=== PATIENT | male | born 1955 | race Caucasian/White ===

== ENCOUNTER 2019-09-12 09:15 | Inpatient (IN) | payer BC, OTHER ==
[~2019-09-12] VITALS: Ht 177.8 cm; Wt 83.9 kg
[~2019-09-12 09:15] MED LIST: ATOR10TA PO
[2019-09-12] MEDS ORDERED: METF-440 PO (09:31)
[2019-09-12] MEDS ORDERED: ASPI81TA31 PO (09:31)
[2019-09-12] MEDS ORDERED: PIOG15TA8 PO (09:31)
--- NOTE | 2019-09-12 09:36 | NUR ---
PT IS IN ROOM #2A. DR HERNANDEZ EVALUATED THE PT.
[2019-09-12] MEDS ORDERED: IV NORMAL SALINE 1000 ML BAG IV ONE ×2 (09:45→11:45)
[2019-09-12 10:02] LABS: *BILIRUBIN,URIN NEGATIVE (NEGATIVE); *BLOOD, URINE 2+ (NEGATIVE); *CLARITY,URINE CLEAR (CLEAR); *COLOR,URINE YELLOW (YELLOW); *KETONES,URINE 3+ (NEGATIVE); *UROBILINOGEN,URINE 0.2 E.U./dl (NORMAL); LEUKOCYTE ESTERASE ,URINE NEGATIVE (NEGATIVE); NITRITE, URINE NEGATIVE (NEGATIVE); PH,URINE 5.5 (5.0-8.0); UGLUCOSE TRACE (NEGATIVE)
[2019-09-12 10:06] LABS: BACTERIA,URINE FEW /HPF (NONE SEEN); RBC,URINE 0-3 /HPF (0-3); SQUAMOUS EPITHELIAL CELL,UR FEW /HPF (NONE SEEN); WBC,URINE 0-3 /HPF (0-3)
[2019-09-12 10:11] LABS: BASOPHILS % (AUTO) 0.2 % (0.0-2.0); EOSINOPHILS % (AUTO) 0.2 % (0.0-7.0); HEMATOCRIT 42.1 % (36.7-47.1); HEMOGLOBIN 13.9 g/dL (12.5-16.3); LYMPHOCYTES # (AUTO) 0.7 K/uL (20.0-40.0); LYMPHOCYTES % (AUTO) 4.9 % (20.5-51.5); MEAN CORPUSCULAR HEMOGLOBIN 28.6 uug (23.8-33.4); MEAN CORPUSCULAR HGB CONC 33 g/dL (32.5-36.3); MEAN CORPUSCULAR VOLUME 86.4 fL (73.0-96.2); MONOCYTES # (AUTO) 0.6 K/uL (2.0-10.0); MONOCYTES % (AUTO) 4.2 % (0.0-11.0); NEUTROPHILS # (AUTO) 12.6 K/uL (1.8-8.9); NEUTROPHILS % (AUTO) 90.5 % (38.5-71.5); PLATELET COUNT (AUTO) 278 K/uL (152-348); RED BLOOD CELL COUNT(AUTO) 4.87 MIL/uL (4.06-5.63)
[2019-09-12 10:17] LABS: CREATININE 1.2 mg/dL (0.6-1.3); POTASSIUM 4.8 mmol/L (3.5-5.1)
[2019-09-12 10:22] LABS: BILIRUBIN,DIRECT 0.2 mg/dL (0.0-0.2); TOTAL PROTEIN, SERUM 7.6 g/dL (6.4-8.2)
[2019-09-12] MEDS ORDERED: TAMSULOSIN HCL 0.4 MG CAP.SR.24H PO ONE (10:45)
[2019-09-12] MEDS ORDERED: TAMSULOSIN HCL 0.4 MG CAP.SR.24H ONE (10:49)
[2019-09-12] MEDS ORDERED: MORPHINE SULFATE 4 MG/1 ML DISP.SYRIN ONE (11:09)
[2019-09-12] MEDS ORDERED: ONDANSETRON 4 MG/2 ML VIAL ONE (11:09)
[2019-09-12] MEDS ORDERED: MORPHINE SULFATE 4 MG/1 ML DISP.SYRIN IV ONE (11:15)
[2019-09-12] MEDS ORDERED: ONDANSETRON 4 MG/2 ML VIAL IV ONE (11:15)
--- NOTE | 2019-09-12 13:53 | NUR ---
REPORT WAS GIVEN TO COOLING TOWER OPERATOR. PT WAS TRANSFERED TO ROOM #315.
--- NOTE | 2019-09-12 14:00 | NUR ---
Received patient via [facility] from ER in stable condition. Patient is alert, awake and verbally responsive. No signs of distress noted. No SOB. No complain of Pain or discomfort at this time. Patient with admitting Diagnosis of Bradycardia and Kidney Stones under Dr. Lei. Head to toe assessment was done. Skin is Intact, LAC Gauge 18 in intact and patent. All needs attended and met. kept clean and comfortable. Will continue to monitor.
[2019-09-12] MEDS ORDERED: ONDANSETRON 4 MG/2 ML VIAL IV PRN (14:30)
[2019-09-12] MEDS ORDERED: ZOLPIDEM 5 MG TABLET PO PRN (14:30)
[2019-09-12] MEDS ORDERED: MAGNESIUM HYDROXIDE 30 ML LIQUID UDC PO PRN (14:30)
[2019-09-12] MEDS ORDERED: Z GUARD REMEDY PASTE 57 GM TUBE TOP PRN (14:30)
[2019-09-12] MEDS ORDERED: MORPHINE SULFATE 2 MG/1 ML DISP.SYRIN IV PRN (14:30)
[2019-09-12] MEDS ORDERED: HYDROCODONE/APAP 5-325MG TABLET PO PRN (14:30)
[2019-09-12] MEDS ORDERED: ACETAMINOPHEN 325 MG TABLET PO PRN (14:30)
[2019-09-12 14:37] VITALS: BP 123/50
[2019-09-12] MEDS: IV 1/2NS 1000 ML 1,000 ML IV PRN (14:45)
--- NOTE | 2019-09-12 16:00 | NUR ---
Patient having a Asymptomatic Bradycardia, ranging 40-50 bpm, Dr. Avendano made aware. Will continue to monitor.
[2019-09-12 16:10] VITALS: BP 119/48
--- NOTE | 2019-09-12 18:23 | NUR ---
Patient in bed, awake and verbally responsive. No signs of distress noted. No SOB. No complain of Pain or discomfort noted. Patient is asymptomatic sinus Bradycardia ranging 40-50 Bpm. Echo was done EF 65%. IVF infusing well on Left AC, No signs of infiltration noted. All needs attended and met. Will continue to Strain Urine as ordered. Kept clean and comfortable. Will endorse to Oncoming Nurse.
--- NOTE | 2019-09-12 19:50 | NUR ---
PATIENT ALERT ORIENTED, NO SOB NO CHEST PAIN, TELE MONITOR SINUS BRADYCARDIA. PATIENT ASYMPTOMATIC, CONTINENT OF BOWEL AND BLADDER, PATIENT WAS INSTRUCTED TO URINATE ON MEASURING CUP WITH STRAINER, SO THAT URINE CAN BE STRAINED. PATIENT URINE WHILE STAFF IN THE ROOM AND ABLE TO PASS SMALL REDDISH COLOR STONE, STONE WAS SAVED, PLACE IT AT SPECIMEN CUT. WILL CONT TO MONITOR.
[2019-09-12 20:00] VITALS: BP 118/47
--- NOTE | 2019-09-12 20:00 | NUR ---
PATIENT VOIDING FREELY, URINE COLOR TEA COLOR BUT NO ODOR NOTED, CONT TO MONITOR.
[2019-09-13] VITALS: BP 96/36
[2019-09-13] MEDS: IV 1/2NS 1000 ML 1,000 ML IV PRN ×2 (00:29→07:57)
[2019-09-13 04:00] VITALS: BP 94/40
--- NOTE | 2019-09-13 05:15 | NUR ---
PATIENT ALERT ORIENTED, NO SOB NO CHEST, PATIENT TELE MONITOR SINUS RHYTHM SINUS JELLY LOW 36 BUT NOT SUSTAIN, PATIENT HAS NO COMPLAIN OF DISCOMFORT OR FLANK PAIN, PATIENT VOIDING WELL AND STATE THAT HE FEEL LOT BETTER, URINE COLOR TEA COLOR URINE, CONT TO MONITOR.
--- NOTE | 2019-09-13 07:10 | NUR ---
Received patient in Bed, awake, alert and verbally responsive. No signs of distress noted. No complain of pain or discomfort. Patient passed 1 stone from his urine last night, will continue to strain urine. Will continue to monitor.
[2019-09-13 07:14] LABS: BASOPHILS # (AUTO) 0.1 K/uL (0.0-8.0); BASOPHILS % (AUTO) 0.7 % (0.0-2.0); EOSINOPHILS # (AUTO) 0.2 K/uL (0.0-0.7); EOSINOPHILS % (AUTO) 2.2 % (0.0-7.0); LYMPHOCYTES # (AUTO) 2.2 K/uL (20.0-40.0); LYMPHOCYTES % (AUTO) 24.3 % (20.5-51.5); MEAN CORPUSCULAR HEMOGLOBIN 28.8 uug (23.8-33.4); MEAN CORPUSCULAR HGB CONC 33 g/dL (32.5-36.3); MEAN CORPUSCULAR VOLUME 86.7 fL (73.0-96.2); MONOCYTES % (AUTO) 11.2 % (0.0-11.0); NEUTROPHILS # (AUTO) 5.6 K/uL (1.8-8.9); NEUTROPHILS % (AUTO) 61.6 % (38.5-71.5); PLATELET COUNT (AUTO) 247 K/uL (152-348); RED BLOOD CELL COUNT(AUTO) 4.22 MIL/uL (4.06-5.63)
[2019-09-13 07:17] LABS: MAGNESIUM 1.8 mg/dL (1.8-2.4); PHOSPHOROUS 3.5 mg/dL (2.5-4.9); POTASSIUM 4.1 mmol/L (3.5-5.1)
[2019-09-13 07:24] LABS: HEMATOCRIT 36.6 % (36.7-47.1); HEMOGLOBIN 12.1 g/dL (12.5-16.3)
--- NOTE | 2019-09-13 10:50 | NUR ---
Patient is awake and verbally responsive. No signs of distress noted. No SOB. No complain of Pain or discomfort. Patient with discharge order to Go Home today. Patient with HR of 65-67 bpm while walking and 45-50 bpm while laying down, evaluated by Dr. Avendano with No New Order. Discharge Instruction given to patient and verbalized Understanding. All belongings was signed and sent with patient. Removed clinical documentation consultant, wrist band and IV site. Patient was Picked up by in stable condition.
[2019-09-13] MEDS ORDERED: TAMSULOSIN HCL 0.4 MG CAP.SR.24H PO SCH (21:00)
== END 2019-09-13 10:50 | disposition home or self-care (01) | DRG 694 ==
LOC: ER 09:15 → TELE3 13:14
PROVIDERS: ADMIT Student in an Organized Health Care Education/Training Program; ATTEND Student in an Organized Health Care Education/Training Program
DX: N13.2 Hydronephrosis with renal and ureteral calculous obstruction (principal); K86.1 Other chronic pancreatitis; R00.1 Bradycardia, unspecified; K57.30 Diverticulosis of large intestine without perforation or abscess without bleeding; E11.9 Type 2 diabetes mellitus without complications; Z79.84 Long term (current) use of oral hypoglycemic drugs; K40.20 Bilateral inguinal hernia, without obstruction or gangrene, not specified as recurrent; K76.0 Fatty (change of) liver, not elsewhere classified; E78.5 Hyperlipidemia, unspecified; I10 Essential (primary) hypertension; Z87.19 Personal history of other diseases of the digestive system
CPT/HCPCS: 36415; 70030-TC; 71045; 82360; 83690; 83735; 84100; 84443; 85025; 93005; 93307; A4663; G0378; J2270; J2405; J3490; J7030